=== PATIENT | male | born 1995 | race Caucasian/White ===

== ENCOUNTER 2019-04-25 14:15 | Emergency (ER) | payer BC ==
[2019-04-25] MEDS ORDERED: Fluorescein Sodium TOPICAL* 1 MG TEST STRIP ONE (14:23)
[2019-04-25] MEDS ORDERED: Tetracaine 0.5% OPTH.SOL 4 ML* 1 DROP BTL ONE (14:23)
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
[2019-04-25] MEDS ORDERED: Fluorescein Sodium TOPICAL* 1 MG TEST STRIP OPHTHALMIC ONE (14:33)
[2019-04-25] MEDS ORDERED: Bacitracin OINTMENT* 0.5% 0.5 oz TUBE TOPICAL ONE (14:33)
[2019-04-25] MEDS ORDERED: Tetracaine 0.5% OPTH.SOL 4 ML* 1 DROP BTL RIGHT EYE ONE (14:33)
[2019-04-25 15:14] VITALS: BP 134/74
== END 2019-04-25 15:00 | disposition home or self-care (01) ==
LOC: ED 14:15
DX: H11.31 Conjunctival hemorrhage, right eye (principal); W22.8XXA Striking against or struck by other objects, initial encounter; Y92.9 Unspecified place or not applicable
CPT/HCPCS: 99282; A9270-GY